=== PATIENT | male | born 2005 | race African-American/Black ===

== ENCOUNTER 2025-02-11 22:26 | Emergency (ER) | payer OTHER ==
[~2025-02-11] VITALS: Ht 167.6 cm; Wt 55.0 kg
[2025-02-11 22:55] VITALS: O2SAT 98
[2025-02-11 23:58] LABS: BASOPHILS % 0.2 % (0.0-2.0); HEMATOCRIT. 40.2 % (42.0-52.0); HEMOGLOBIN. 13.5 g/dL (14.0-18.0); LYMPHOCYTES % 21.7 % (20.0-50.0); MEAN CORPUSCULAR HGB CONC 33.5 g/dL (31.0-37.0); MEAN CORPUSCULAR VOLUME 89.6 fL (80.0-94.0); MEAN PLATELET VOLUME 7.9 fl (7.4-10.4); MONOCYTES % 5.2 % (2.0-8.0); NEUTROPHILS % 70.9 % (40.0-76.0); PLATELET 230 x1000/uL (130-400); RED BLOOD CELL COUNT 4.49 mill/uL (4.7-6.1); RED CELL DISTRIBUTION WIDTH 12.7 % (11.6-14.6); WHITE BLOOD COUNT 7.9 x1000/uL (4.5-11.0)
[2025-02-12 00:12] LABS: CARBON DIOXIDE 27 mEq/L (21-32); CHLORIDE 103 mEq/L (98-107); POTASSIUM 3.7 mEq/L (3.5-5.1); SODIUM 138 mEq/L (136-145)
[2025-02-12 00:13] LABS: CALCIUM 9.3 mg/dL (8.7-10.4)
[2025-02-12 00:17] LABS: GLUCOSE 92 mg/dL (70-105)
[2025-02-12 00:18] LABS: CREATININE 1.1 mg/dL (0.6-1.3); UREA NITROGEN BLOOD 13 mg/dL (9-23)
[2025-02-12] MEDS: ACETAMINOPHEN 325MG TABLET PO ONE (01:10)
[2025-02-12] MEDS: ONDANSETRON HCL 4MG TABLET PO ONE (01:11)
[2025-02-12 01:39] VITALS: BP 107/65; PULSE 73; RESP 16; TEMP 36.7; O2SAT 99
[2025-02-12 03:07] LABS: CLARITY URINE CLEAR (CLEAR); COLOR URINE YELLOW (YELLOW); GLUCOSE URINE NEGATIVE (NEGATIVE); KETONES URINE NEGATIVE (NEGATIVE); LEUKOCYTE ESTERASE URINE 2+ (NEGATIVE); NITRITE URINE NEGATIVE (NEGATIVE); OCCULT BLOOD URINE NEGATIVE (NEGATIVE); PROTEIN URINE TRACE (NEGATIVE); SPECIFIC GRAVITY URINE 1.025 (1.005-1.030)
[2025-02-12] MEDS ORDERED: MAG-55 MT (03:26)
[2025-02-12 04:00] LABS: SQUAMOUS EPITHELIAL CELL URINE FEW /lpf (RARE/1+)
[2025-02-12 04:01] LABS: RBC URINE 0-2 /hpf (0-2)
[2025-02-12 04:03] LABS: BACTERIA URINE TRACE
== END 2025-02-12 03:32 | disposition home or self-care (01) ==
LOC: ER 22:26
DX: R10.9 Unspecified abdominal pain (principal); Z79.899 Other long term (current) drug therapy; Z88.6 Allergy status to analgesic agent
CPT/HCPCS: 99283; 80048; 85025; 36415; 81003; Q0162

== ENCOUNTER 2025-07-11 14:40 | Emergency (ER) | payer SELFPAY ==
[~2025-07-11] VITALS: Ht 167.6 cm; Wt 55.0 kg
[~2025-07-11 14:40] MED LIST: MAG-55 MT
[2025-07-11 14:52] VITALS: O2SAT 100
[2025-07-11 17:18] VITALS: BP 115/73; PULSE 73; RESP 18; TEMP 36.7; O2SAT 100
== END 2025-07-11 17:19 | disposition home or self-care (01) ==
LOC: ER 14:40
DX: M79.671 Pain in right foot (principal); Z88.6 Allergy status to analgesic agent
CPT/HCPCS: 73630; 99283